=== PATIENT | male | born 1955 | race Asian ===

== ENCOUNTER 2018-04-16 03:27 | Inpatient (IN) | payer OTHER ==
[~2018-04-16] VITALS: Ht 175.3 cm; Wt 83.7 kg
[2018-04-16 03:32] VITALS: Ht 175.3 cm; Wt 83.7 kg
[2018-04-16] MEDS ORDERED: MELOXICAM15 M1 PO (07:33)
[2018-04-16] MEDS ORDERED: LOSARTAN POTAS100 M1 PO (07:33)
[2018-04-16 10:02] VITALS: BP 139/85
[2018-04-16 16:38] VITALS: BP 118/70
[2018-04-16 20:49] VITALS: BP 122/66
[2018-04-17 05:33] VITALS: BP 127/80
[2018-04-17 06:37] LABS: PLATELET COUNT 249 x10^3mcL (130-400); RED CELL DISTRIBUTION WIDTH 13.3 % (11.5-14.5)
[2018-04-17 06:40] LABS: BASOPHIL % 0 % (0-2)
[2018-04-17 07:05] LABS: CALCIUM 8.6 mg/dL (8.5-10.1); CARBON DIOXIDE 26.4 mmol/L (21-32); CHLORIDE SERUM 104 mmol/L (98-107); CREATININE SERUM 0.9 mg/dL (0.7-1.3); GFR1 > 60 mL/min; GLUCOSE SERUM 130 mg/dL (74-106); POTASSIUM SERUM 4.1 mmol/L (3.5-5.1); SODIUM SERUM 140 mmol/L (136-145)
[2018-04-17 09:04] VITALS: BP 144/84
[2018-04-17 17:33] VITALS: BP 142/87
[2018-04-17 21:03] VITALS: BP 140/82
[2018-04-18 04:47] VITALS: BP 125/76
[2018-04-18 09:14] VITALS: BP 141/83
[2018-04-18 16:55] VITALS: BP 118/70
[2018-04-18 21:13] VITALS: BP 124/81
[2018-04-19 05:22] VITALS: BP 122/79
[2018-04-19 09:12] VITALS: BP 136/78
[2018-04-19 16:44] VITALS: BP 125/71
[2018-04-19 20:11] VITALS: BP 144/81
[2018-04-19 21:54] LABS: microscopic required? NO
[2018-04-19 22:02] LABS: urine erythrocyte NEGATIVE (NEGATIVE)
[2018-04-20 05:03] VITALS: BP 135/81
[2018-04-20 08:53] VITALS: BP 145/88
[2018-04-20 09:48] VITALS: BP 145/88
== END 2018-04-20 13:00 | disposition home or self-care (01) | DRG 552 ==
LOC: ED 03:27 → EDBEDREQSVC 07:09 → MU 07:09
PROVIDERS: Internal Medicine Pulmonary Disease
DX: M54.42 Lumbago with sciatica, left side (principal); I10 Essential (primary) hypertension; G89.29 Other chronic pain; Z79.899 Other long term (current) drug therapy
CPT/HCPCS: 97110-GP; 97116-GP; 97530-GP; 97535-GP; J1644; J1885; J2270; J2930; J8540